=== PATIENT | female | born 2000 | race African-American/Black ===

== ENCOUNTER → 2019-02-26 14:58 | Observation (INO) ==
--- NOTE | 2019-02-26 13:52 | OB/GYN Progress Note ---
Date of Encounter: 02/26/19 Time of Encounter: 13:48 - Assessment and Plan (1) 37 weeks gestation of Current Visit: Yes Status: Acute (2) Decreased movement Current Visit: Yes Status: Acute NST reactive. Pt now feeling movements. Qualifiers: Fetus number: single or unspecified fetus Trimester: third trimester Qualified Code(s): O36.8130 - Decreased movements, third trimester, not applicable or unspecified (3) Uterine contractions Current Visit: Yes Status: Acute SVE 3cm. Pt reports contractions are irregular and not as strong as labor. Discharge home with precautions. Subjective - Subjective Interval history: 18 year-old presenting at 37w4d with c/o blood tinged vaginal mucus, decreased movement for the last 4 hours, and irregular uterine contractions. She reports she last had a cigarette about 2 hours ago. No other complaints. She has been feeling movements since arriving to triage. She denies leaking fluid or vaginal bleeding other than losing her mucus plug which is blood tinged. Antepartum ROS: movement normal, contractions, no loss of fluid, no vaginal bleeding Objective - Vital Signs Vital Signs: Intake and Output 02/25/19 02/26/19 02/26/19 23:59 07:59 15:59 Other: Weight 102.2 kg Patient Weight 02/26/19 23:59 Weight 102.2 kg - Exam FHR: category 1 FHR comments: 135BPM, Reactive NST Auscultation: bilateral: normal Abdomen: Present: soft, gravid Uterus: Absent: tenderness Cervical dilation: 3 per RN
== END | disposition home or self-care (01) ==
LOC: 1NENULAB
PROVIDERS: ADMIT Registered Nurse; ATTEND Registered Nurse